=== PATIENT | male | born 1950 | race Caucasian/White ===

== ENCOUNTER 2017-02-15 18:27 | Emergency (ER) | payer OTHER ==
[~2017-02-15] VITALS: Ht 172.7 cm; Wt 101.3 kg
[2017-02-15 19:20] LABS: EOSINOPHIL COUNT 0.1 K/uL (0-0.3); IMMATURE GRANULOCYTE (%) 0.8 % (0.0-0.7); IMMATURE GRANULOCYTE COUNT 0.1 K/uL; INSTRUMENT ABS NEUTROPHIL CT 5.5 K/uL; LYMPHOCYTE COUNT 1.5 K/uL (1.0-2.8); MCH 29.5 PG (29.0-34.0); MCHC 34.9 G/DL (30.0-36.0); MCV 84.5 FL (86-99); MEAN PLAT.VOLUME 11.2 uM^3 (9.0-12.4); MONOCYTE (%) 7.4 % (3-12); MONOCYTE COUNT 0.6 K/uL (0-0.8); NEUTROPHIL (%) 71.1 % (45-76); NEUTROPHIL COUNT 5.5 K/uL (1.8-6.4); PLATELET COUNT 192 K/uL (156-360); RBC DIS.WIDTH-CV 12.2 % (11.8-14.6); RBC DIS.WIDTH-SD 37.1 % (39-53); RED BLOOD COUNT 5.09 M/uL (4.00-5.50); WHITE BLOOD COUNT 7.7 K/uL (4.1-10.2)
[2017-02-15 19:29] LABS: CHLORIDE 103 mEq/L (99-109); POTASSIUM 3.7 mEq/L (3.7-5.4); SODIUM 136 mEq/L (136-147)
[2017-02-15 19:30] LABS: GLUCOSE 155 mg/dL (70-99)
[2017-02-15 19:32] LABS: ANION GAP 11 MEQ/L (2-14)
[2017-02-15 19:34] LABS: GFR ESTIMATE (CALCULATED) > 59 mL/min/
[2017-02-15 19:35] LABS: UREA NITROGEN (BUN) 24 mg/dL (9-23)
[2017-02-15 19:40] LABS: TROP-I INTERPRETATION NEGATIVE; TROPONIN-I < 0.01 ng/mL (0.0-0.30)
[2017-02-15 20:29] VITALS: BP 121/79
[2017-02-15] MEDS ORDERED: DEXILANT60 MG PO (22:05)
[2017-02-15] MEDS ORDERED: SIMVASTATIN10 MG PO (22:05)
[2017-02-15] MEDS ORDERED: CARTIA XT240 MG PO (22:06)
[2017-02-15] MEDS ORDERED: IRBESARTAN150 MG PO (22:06)
== END 2017-02-15 20:31 | disposition home or self-care (01) ==
LOC: EME 18:27
PROVIDERS: Emergency Medicine
DX: R55 Syncope and collapse (principal); I10 Essential (primary) hypertension; E86.0 Dehydration; R19.7 Diarrhea, unspecified
CPT/HCPCS: 80048; 84484; 85025; 93005; 99281; 99284